=== PATIENT | female | born 1970 | race Caucasian/White ===

== ENCOUNTER 2016-05-22 16:41 | Emergency (ER) | payer OTHER, BC ==
[2016-05-22] MEDS ORDERED: 0.9 % SODIUM CHLORIDE 1,000 ML BAG IV ONE ×2 (17:20→18:30)
[2016-05-22] MEDS ORDERED: ONDANSETRON HCL IV 4 MG/2 ML VIAL IV ONE (17:20)
[2016-05-22 17:34] LABS: HEMOGLOBIN 15.4 gm/dl (11.6-16.0); MEAN CELL VOLUME 81.9 fl (81-97); MEAN CORPUSCULAR HEMOGLOBIN 26.8 pg (27-33); MEAN CORPUSCULAR HGB CONC 32.8 g/dl (32-36); MEAN PLATELET VOLUME 11.7 fl (7.4-10.4); PLATELET COUNT 292 K/uL (130-400); RED BLOOD COUNT 5.74 M/uL (3.80-5.40); RED CELL DISTRIBUTION WIDTH 13.9 % (11.5-14.5); WHITE BLOOD COUNT W/O DIFF 16.8 K/uL (4.2-12.2)
[2016-05-22 17:43] LABS: PLATELET ESTIMATE NORMAL (NORMAL)
[2016-05-22 17:48] LABS: ALB/GLOB RATIO 1.6 (1.1-1.8); ALKALINE PHOSPHATASE 127 U/L (38-126); ALT/SGPT 35 U/L (9-52); ANION GAP 11.1 (7-16); AST/SGOT 35 U/L (14-36); BILIRUBIN,TOTAL 0.33 mg/dL (0.2-1.3); BLOOD UREA NITROGEN 16 mg/dL (7-17); CARBON DIOXIDE 22.9 mmol/L (22-30); CREATININE 0.8 mg/dL (0.52-1.04); EST GLOMERULAR FILTRATION RATE > 60 ml/min; GLUCOSE,RANDOM 142 mg/dL (70-110); LIPASE 85 U/L (23-300); TOTAL PROTEIN 8.1 gm/dL (6.3-8.2)
[2016-05-22] MEDS ORDERED: HYDROMORPHONE HCL 1 MG/ML CPJ IVP ONE ×2 (17:53→18:29)
--- NOTE | 2016-05-22 17:53 | Emergency Department Record ---
History of Present Illness - General Chief Complaint: Abdominal Pain Stated Complaint: ABD PAIN Time Seen by Provider: 05/22/16 17:11 Source: Patient Mode of Arrival: Wheelchair Limitations: No limitations - History of Present Illness Initial Comments: pt became ill at 1300 w vomiting and diarrhea. she had a banana, protein bar this morning. 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 10/02/13 Hydrocodone/Acetaminophen [Norcatur 1 tab PO Q6H PRN #10 tab 05/22/16 5mg/325mg] Ondansetron [Zofran Odt] 4 mg PO Q8H #10 tab.rapdis 05/22/16 Allergies Allergy/AdvReac Type Severity Reaction Status Date / Time Penicillins Allergy UNKNOWN Verified 10/02/13 20:27 Travel Screening - Travel/Exposure Within Last 30 Days Have you traveled within the last 30 days?: No - Travel/Exposure Within Last Year Have you traveled outside the [place] in the last year?: No - Additonal Travel Details Have you been exposed to anyone with a communicable illness?: No - Travel Symptoms Symptom Screening: None Review of Systems Reviewed: No additional complaints except as noted below Constitutional: Reports: As per HPI. Denies: Chills, Fever, Malaise, Night sweats, Weakness, Weight change Eyes: Reports: As per HPI. Denies: Eye discharge, Eye pain, Photophobia, Vision change ENT: Reports: As per HPI. Denies: Congestion, Dental pain, Ear pain, Epistaxis , Hearing loss, Throat pain Respiratory: Reports: As per HPI. Denies: Cough, Dyspnea, Hemoptysis, Stridor, Wheezes Cardiovascular: Reports: As per HPI. Denies: Arrhythmia, Chest pain, Dyspnea on exertion, Edema, Murmurs, Orthopnea, Palpitations, Paroxysmal nocturnal dyspnea, Rheumatic Fever, Syncope Endocrine: Reports: As per HPI. Denies: Fatigue, Heat or cold intolerance, Polydipsia, Polyuria Gastrointestinal: Reports: As per HPI. Denies: Abdominal pain, Constipation, Diarrhea, Hematemesis, Hematochezia, Melena, Nausea, Vomiting Genitourinary: Reports: As per HPI. Denies: Abnormal menses, Discharge, Dyspareunia, Dysuria, Frequency, Hematuria, Incontinence, Retention, Urgency Musculoskeletal: Reports: As per HPI. Denies: Arthralgia, Back pain, Gout, Joint swelling, Myalgia, Neck pain Skin: Reports: As per HPI. Denies: Bruising, Change in color, Change in hair/ nails, Lesions, Pruritus, Rash Neurological: Reports: As per HPI. Denies: Abnormal gait, Confusion, Headache, Numbness, Paresthesias, Seizure, Tingling, Tremors, Vertigo, Weakness Psychiatric: Reports: As per HPI. Denies: Anxiety, Auditory hallucinations, Depression, Homicidal thoughts, Suicidal thoughts, Visual hallucinations Hematological/Lymphatic: Reports: As per HPI. Denies: Anemia, Blood Clots, Easy bleeding, Easy bruising, Swollen glands Past Medical History - SOCIAL HISTORY Smoking Status: Former smoker Alcohol Use: Rare Drug Use: None - RESPIRATORY Hx Respiratory Disorders: No - CARDIOVASCULAR Hx Cardio Disorders: No - NEURO Hx Neuro Disorders: No - GI Hx GI Disorders: Yes Hx Hiatal Hernia: Yes - Hx Genitourinary Disorders: No - ENDOCRINE Hx Endocrine Disorders: No - MUSCULOSKELETAL Hx Musculoskeletal Disorders: No - PSYCH Hx Psych Problems: Yes Hx Depression: Yes - HEMATOLOGY/ONCOLOGY Hx Hematology/Oncology Disorders: No Family Medical History Any Significant Family History?: No Physical Exam - General General Appearance: Alert, Oriented x3, Cooperative, Mild distress - Head Head exam: Normal inspection - Eye Eye exam: Normal appearance, PERRL, EOMI Pupils: Normal accommodation - ENT ENT exam: Normal exam, Mucous membranes dry, Normal external ear exam, Normal orophraynx Ear exam: Normal external inspection. negative: External canal tenderness Nasal Exam: Normal inspection. negative: Discharge, Sinus tenderness Mouth exam: Normal external inspection, Tongue normal Teeth exam: Normal inspection. negative: Dental caries Throat exam: Normal inspection. negative: Tonsillar erythema, Tonsillar exudate - Neck Neck exam: Normal inspection, Full ROM. negative: Tenderness - Respiratory Respiratory exam: Normal lung sounds bilaterally. negative: Respiratory distress - Cardiovascular Cardiovascular Exam: Regular rate, Normal rhythm, Normal heart sounds - GI/Abdominal GI/Abdominal exam: Soft, Normal bowel sounds, Tenderness - Rectal Rectal exam: Deferred - exam: Deferred - Extremities Extremities exam: Normal inspection, Full ROM, Normal capillary refill. negative: Tenderness - Back Back exam: Reports: Normal inspection, Full ROM. Denies: Muscle spasm, Rash noted, Tenderness - Neurological Neurological exam: Alert, CN II-XII intact, Normal gait, Oriented X3 - Psychiatric Psychiatric exam: Normal affect, Normal mood - Skin Skin exam: Dry, Intact, Normal color, Warm Course Vital Signs 05/22/16 16:44 Temperature 97.9 F Pulse Rate 94 H Respiratory 20 Rate Blood Pressure 154/112 Pulse Ox 96 - Reevaluation(s) Reevaluation #1: 05/22/16 17:54 care being assumed by dr canada Reevaluation #2: 05/22/16 18:[address] canada urine pending Medical Decision Making - Lab Data Result diagrams: 05/22/16 17:25 05/22/16 17:25 Lab Results 05/22/16 05/22/16 05/22/16 Range/Units 17:25 17:25 17:25 WBC 16.8 H (4.2-12.2) K/uL RBC 5.74 H (3.80-5.40) M/uL Hgb 15.4 (11.6-16.0) gm/dl Hct 47.0 (35.0-47.0) % MCV 81.9 (81-97) fl MCH 26.8 L (27-33) pg MCHC 32.8 (32-36) g/dl RDW 13.9 (11.5-14.5) % Plt Count 292 (130-400) K/uL MPV 11.7 H (7.4-10.4) fl Neutrophils % 87.0 H (47-80) % Lymphocytes % 6.0 L (16-45) % Monocytes % 5.0 (0-9) % Eosinophils % 2.0 (0-6) % Basophils % Not Reportable Platelet Estimate Normal (NORMAL) RBC Morphology Normal Stool Occult Blood Negative Stool for White Cells No wbc's observed Disposition Disposition: Discharge Clinical Impression: Rotavirus enteritis Disposition: Home, Self-Care Condition: (1) Good Instructions: Rotavirus Infection (ED) Additional Instructions: follow up with family doctor. return sooner if worse. push fluids. BRAT diet. Prescriptions: Hydrocodone/Acetaminophen [Norcatur 5mg/325mg] 1 tab PO Q6H PRN #10 tab PRN Reason: Pain - General Ondansetron [Zofran Odt] 4 mg PO Q8H #10 tab.rapdis Forms: Patient Portal Access, Return to Work/School
[2016-05-22 18:12] LABS: ROTOVIRUS DETECTED (NOT DETECT)
[2016-05-22 18:14] LABS: CRYPTOSPORIDIUM PARVUM ANTIGEN NOT DETECTED (NOT DETECT); GIARDIA LAMBLIA ANTIGEN NOT DETECTED (NOT DETECT)
[2016-05-22 19:05] LABS: MOLECULAR C DIFF TOXIN SCREEN NOT DETECTED
[2016-05-22 19:18] LABS: URINE APPEARANCE CLEAR; URINE BILIRUBIN NEGATIVE (NEGATIVE); URINE BLOOD SMALL (NEGATIVE); URINE COLOR YELLOW; URINE GLUCOSE (UA) NEGATIVE (NEGATIVE); URINE KETONE TRACE (NEGATIVE); URINE LEUKOCYTE ESTERASE NEGATIVE (NEGATIVE); URINE NITRITE NEGATIVE (NEGATIVE); URINE PROTEIN NEGATIVE (NEGATIVE); URINE UROBILINOGEN 0.2 E.U./dL (0.20 - 1.00)
[2016-05-22 19:25] LABS: URINE BACTERIA NONE SEEN; URINE EPITHELIAL CELLS 0 - 2 (FEW); URINE WBC NONE SEEN (0-2/hpf)
[2016-05-22] MEDS ORDERED: HYDROCODONE/APAP 5/325MG TABLET PO ONE (19:53)
== END 2016-05-22 19:55 | disposition home or self-care (01) ==
LOC: ER 16:41
DX: A08.0 Rotaviral enteritis (principal); R11.2 Nausea with vomiting, unspecified; R19.7 Diarrhea, unspecified
CPT/HCPCS: 99284 ×2; 96376; 96374; 96375; 96361; 83690; 87329; 80053; 81001; 89055; 87425; 87427; 82272; 87493; 85027; J2405; J1170; J7030

== ENCOUNTER 2017-01-15 14:36 | Observation (INO) | payer OTHER, BC ==
[2017-01-15] MEDS ORDERED: LORAZEPAM 2 MG/ML VIAL IV ONE (15:11)
--- NOTE | 2017-01-15 15:17 | Emergency Department Record ---
Anxiety - General Chief Complaint: Anxiety Stated Complaint: SBO AND NUMBNESS IN LEGS Time Seen by Provider: 01/15/17 14:53 Source: Patient Mode of Arrival: Ambulatory Limitations: No limitations - History of Present Illness Initial Comments: The patient is here due to not feeling well for the last 45 minutes or so. She was driving in the car and began to not feel well. She then went into [employer] to get a soda and then was a little confused. Soon after she developed numbness to her arms and legs and felt like her legs were "in cement". She was at that time experiencing chest heaviness retrosternally with no radiation but with mild SOB. There was no reported nausea, sweating or dizziness. Presently the arm numbness has pretty much resolved and the legs are improved but not resolved. The patient does have a hx of anxiety and depression and did stop her Paxil and Abilify last month abruptly. She is still taking Wellbutrin. MD Complaint: Anxiety, Shortness of breath Onset/Timin -: Minutes(s) Symptoms: Chest pain, Dyspnea, Extremity numbness/tingling Place: Home Previous History of Same: No Quality: Constant Provoking factors: Emotional stress Improves With: Nothing Worsens With: Nothing Associated symptoms: Weakness - Related Data Home Medications: Home Medications Medication Instructions Recorded Confirmed Last Taken Aripiprazole [Aripiprazole] 2 mg PO DAILY 01/15/17 01/15/17 Unknown Bupropion HCl [Bupropion Xl] 300 mg PO DAILY 01/15/17 01/15/17 Unknown Paroxetine HCl [Paxil] 30 mg PO DAILY 01/15/17 01/15/17 Unknown Allergies/Adverse Reactions: Allergies Allergy/AdvReac Type Severity Reaction Status Date / Time Penicillins Allergy UNKNOWN Verified 10/02/13 20:27 Travel Screening - Travel/Exposure Within Last 30 Days Have you traveled within the last 30 days?: No Review of Systems Constitutional: Denies: Chills, Fever Eyes: Denies: Eye discharge ENT: Denies: Congestion, Other Respiratory: Denies: Cough, Dyspnea Past Medical History - SOCIAL HISTORY Smoking Status: Former smoker Alcohol Use: None Drug Use: None - RESPIRATORY Hx Respiratory Disorders: No - CARDIOVASCULAR Hx Cardio Disorders: No - NEURO Hx Neuro Disorders: No - GI Hx GI Disorders: Yes Hx Hiatal Hernia: Yes - Hx Genitourinary Disorders: No - ENDOCRINE Hx Endocrine Disorders: No - MUSCULOSKELETAL Hx Musculoskeletal Disorders: No - PSYCH Hx Psych Problems: Yes Hx Depression: Yes - HEMATOLOGY/ONCOLOGY Hx Hematology/Oncology Disorders: No Family Medical History Any Significant Family History?: No Physical Exam - General General Appearance: Alert, Cooperative, No acute distress (The patient is resting quietly and comfortably.) - Head Head exam: Atraumatic, Normocephalic, Normal inspection - Eye Eye exam: Normal appearance, PERRL - ENT Throat exam: Normal inspection. negative: Tonsillar erythema, Tonsillar exudate - Neck Neck exam: Normal inspection, Full ROM. negative: Tenderness - Respiratory Respiratory exam: Normal lung sounds bilaterally. negative: Respiratory distress - Cardiovascular Cardiovascular Exam: Regular rate, Normal rhythm, Normal heart sounds - GI/Abdominal GI/Abdominal exam: Soft, Normal bowel sounds. negative: Tenderness - Extremities Extremities exam: Normal inspection, Full ROM, Normal capillary refill. negative: Tenderness - Neurological Neurological exam: Abnormal gait, Alert, Reflexes normal, Other (Neg expressive aphasia or facial drooping or trouble swallowing. Neg Drift or Rhomberg exams.) . negative: Altered, Motor sensory deficit, Normal gait, Oriented X3 (The patient is oriented to name, place, home address but did get her age wrong and also the day of the week.) - Psychiatric Psychiatric exam: Flat affect. negative: Agitated, Anxious, Normal affect - Skin Skin exam: negative: Rash Course Vital Signs 01/15/17 14:39 Temperature 98.3 F Pulse Rate 88 Respiratory 28 H Rate Blood Pressure 176/128 Pulse Ox 100 - Reevaluation(s) Reevaluation #1: The patient is doing a lot better at this time. She denies any CP, SOB, TAMIKA, or any headache or visual changes. She is able to get up to walk with no difficulty. her arm numbness has resolved and her leg numbness is 90% resolved. I also did test her Finger to Nose exam and it is normal bilaterally. At this time I see no signs of any acute CVA. 01/15/17 15:57 01/15/17 17:28 Reevaluation #2: 01/15/17 16:29 The patient is doing very well at this time and is back to normal with no pain. I did discuss the issues with the patient and did recommend a short stay hospital admission and the patient agreed to the plan. I also did discuss the case with Dr. Sky and he accepted the patient for admission. 01/15/17 16:32 Medical Decision Making - Data Complexity MDM Data: Labs Ordered and/or Reviewed, X-Ray Ordered and/or Reviewed, EKG Ordered and/or Reviewed - Lab Data Result diagrams: 01/15/17 15:15 01/15/17 15:15 - EKG Data -: EKG Interpreted by Me EKG: No Acute Changes (Neg for ischemia. Poss poor R wave progression.) - Radiology Data Radiology results: Report reviewed (CXR: Neg Head CT: Neg.) Disposition Disposition: Admit Clinical Impression: Paresthesia Chest pain Qualifiers: Chest pain type: unspecified Qualified Code(s): R07.9 - Chest pain, unspecified Disposition: Still a Patient at [facility] Decision to Admit: Admit from ER Decision to Admit Date: 01/15/17 Decision to Admit Time: 16:33 Accepting Physician: Jasmin Time Discussed w/Accepting Physician: 16:33 Condition: (2) Stable Time of Disposition: 16:33 Quality - Quality Measures Quality Measures: N/A - Blood Pressure Screening View Details: Yes Does Patient Have Any of the Following: No Blood Pressure Classification: Hypertensive Reading Systolic Measurement: 137 Diastolic Measurement: 108 Screening for High Blood Pressure: < First Hypertensive BP, F/U Documented > [ [id number]] First Hypertensive Follow-up Interventions: Referral to alternative/primary care provider.
[2017-01-15 15:25] LABS: BASO % 0.5 % (0-6); EOS % 2.3 % (0-6); GRAN % 61.2 % (47-80); HEMATOCRIT 41.5 % (35.0-47.0); HEMOGLOBIN 13.4 gm/dl (11.6-16.0); LYMPH % 28.1 % (16-45); MEAN CELL VOLUME 83.2 fl (81-97); MEAN CORPUSCULAR HEMOGLOBIN 26.9 pg (27-33); MEAN CORPUSCULAR HGB CONC 32.3 g/dl (32-36); MEAN PLATELET VOLUME 11.3 fl (7.4-10.4); MONO % 7.9 % (0-9); PLATELET COUNT 245 K/uL (130-400); RED BLOOD COUNT 4.99 M/uL (3.80-5.40); RED CELL DISTRIBUTION WIDTH 14.2 % (11.5-14.5); WHITE BLOOD COUNT W/O DIFF 7.7 K/uL (4.2-12.2)
[2017-01-15 15:40] LABS: BLOOD UREA NITROGEN 8 mg/dL (6-20); CREATININE 0.8 mg/dL (0.5-0.9); EST GLOMERULAR FILTRATION RATE > 60 mL/min
[2017-01-15 15:43] LABS: GLUCOSE,RANDOM 99 mg/dL (74-109)
[2017-01-15 15:45] LABS: ALB/GLOB RATIO 1.7 (1.1-1.8); ALBUMIN 4.4 g/dL (4.0-5.0); ALKALINE PHOSPHATASE 95 U/L (35-104); ALT/SGPT 9 U/L (<33); AST/SGOT 12 U/L (10.0-35.0); CREATINE PHOSPHOKINASE 57 U/L (26-192)
[2017-01-15 15:48] LABS: CKMB < 1.0 ng/mL (<3.77)
[2017-01-15] MEDS ORDERED: PAROXETINE HCL 10 MG TABLET PO SCH (16:30)
[2017-01-15] MEDS ORDERED: LORAZEPAM 0.5 MG TABLET PO PRN (16:48)
[2017-01-15 17:28] LABS: AMPHETAMINE SCREEN URINE NOT DETECTED; BARBITURATE SCREEN URINE NOT DETECTED; BENZODIAZEPINE SCREEN URINE NOT DETECTED; COCAINE SCREEN URINE NOT DETECTED; METHADONE SCREEN URINE NOT DETECTED; METHAMPHETAMINE SCREEN NOT DETECTED; OPIATE SCREEN URINE NOT DETECTED; OXYCODONE SCREEN URINE NOT DETECTED; PHENCYCLIDINE SCREEN URINE NOT DETECTED; PROPOXYPHENE SCREEN URINE NOT DETECTED; THC SCREEN URINE NOT DETECTED; TRICYCLIC ANTIDEPRESSANT SCRN NOT DETECTED
[2017-01-15] MEDS: ASPIRIN 325 MG TAB ENTERIC-COATED PO SCH (17:49)
[2017-01-15] MEDS: ACETAMINOPHEN 500 MG TABLET PO PRN ×2 (18:53→23:31)
[2017-01-15 20:00] LABS: CKMB < 1.0 ng/mL (<3.77)
[2017-01-16 04:26] LABS: CKMB < 1.0 ng/mL (<3.77)
--- NOTE | 2017-01-16 07:46 | History & Physical ---
History of Present Illness - Date of Service Date of Service for History & Physical: 01/16/17 - History of Present Illness Admitting Diagnosis: 1. Chest pain, R/O CO. 2. Diffuse Paresthesia's and Confusion, etiology unclear. History of Present Illness: Mrs. Barron is a 46 y/o female who comes with confusion and feeling weird while driving this afternoon. She says that she stop into [employer] for a drink and began to feel short of breath with chest tightness and numbness of her arms and legs. She denies blurring of vision, headache, nausea, vomiting, palpitations or loss of consciousness. The patient has not previous history of cardiac disease or stroke and denies smoking or alcohol use. She does have a history of anxiety and depression for which she takes Paxil, Abilify and Wellbutrin. She admits to abruptly discontinuing her medications without proper taper or medical advice and is not under the care of a psychiatrist. On presentation to the ED the patients symptoms had much improved and workup did not show any significant findings. She was resumed on her antidepressant medications at initiation doses and admitted for further observation. Travel Screening - Travel/Exposure Within Last 30 Days Have you traveled within the last 30 days?: No - Travel/Exposure Within Last Year Have you traveled outside the [place] in the last year?: No - Additonal Travel Details Have you been exposed to anyone with a communicable illness?: No - Travel Symptoms Symptom Screening: None Review of Systems Reviewed: No additional complaints except as noted below Constitutional: Denies: Chills, Fever Eyes: Denies: Eye discharge ENT: Denies: Congestion, Other Respiratory: Denies: Cough, Dyspnea Cardiovascular: Reports: As per HPI. Denies: Arrhythmia, Chest pain, Dyspnea on exertion, Edema, Murmurs, Orthopnea, Palpitations, Paroxysmal nocturnal dyspnea, Rheumatic Fever, Syncope Endocrine: Reports: As per HPI. Denies: Fatigue, Heat or cold intolerance, Polydipsia, Polyuria Gastrointestinal: Reports: As per HPI. Denies: Abdominal pain, Constipation, Diarrhea, Hematemesis, Hematochezia, Melena, Nausea, Vomiting Genitourinary: Reports: As per HPI. Denies: Abnormal menses, Discharge, Dyspareunia, Dysuria, Frequency, Hematuria, Incontinence, Retention, Urgency Musculoskeletal: Reports: As per HPI. Denies: Arthralgia, Back pain, Gout, Joint swelling, Myalgia, Neck pain Skin: Reports: As per HPI. Denies: Bruising, Change in color, Change in hair/ nails, Lesions, Pruritus, Rash Neurological: Reports: As per HPI. Denies: Abnormal gait, Confusion, Headache, Numbness, Paresthesias, Seizure, Tingling, Tremors, Vertigo, Weakness Psychiatric: Reports: As per HPI. Denies: Anxiety, Auditory hallucinations, Depression, Homicidal thoughts, Suicidal thoughts, Visual hallucinations Hematological/Lymphatic: Reports: As per HPI. Denies: Anemia, Blood Clots, Easy bleeding, Easy bruising, Swollen glands Past Medical History - SOCIAL HISTORY Smoking Status: Former smoker Alcohol Use: Occasional Drug Use: None - RESPIRATORY Hx Respiratory Disorders: No - CARDIOVASCULAR Hx Cardio Disorders: No - NEURO Hx Neuro Disorders: No - GI Hx GI Disorders: Yes Hx Hiatal Hernia: Yes - Hx Genitourinary Disorders: No - ENDOCRINE Hx Endocrine Disorders: No - MUSCULOSKELETAL Hx Musculoskeletal Disorders: No - PSYCH Hx Psych Problems: Yes Hx Anxiety: Yes Hx Depression: Yes - HEMATOLOGY/ONCOLOGY Hx Hematology/Oncology Disorders: No Family Medical History Any Significant Family History?: No Hx Cancer: Father, Mother H&P Meds/Allergies - Allergies Allergies: Allergies Allergy/AdvReac Type Severity Reaction Status Date / Time Penicillins Allergy UNKNOWN Verified 10/02/13 20:27 - Home Medications Home Medications Medication Instructions Recorded Confirmed Last Taken Aripiprazole 2 mg PO DAILY 01/15/17 01/15/17 Unknown Bupropion HCl [Bupropion Xl] 300 mg PO DAILY 01/15/17 01/15/17 Unknown Previous Rx's Medication Instructions Recorded Acetaminophen [Tylenol 500Mg Tab] 500 mg PO Q4H PRN #14 tablet 01/16/17 Paroxetine HCl [Paxil] 20 mg PO DAILY #20 tablet 01/16/17 - Active Medications Active Medications: Current Medications Acetaminophen (Tylenol 500mg Tab) 500 mg PO Q4H PRN PRN Reason: HEADACHE Last Admin: 01/15/17 23:31 Dose: 500 mg Aspirin (Ecotrin (Ec)) 325 mg PO DAILY MORE Last Admin: 01/15/17 17:49 Dose: 325 mg Bupropion HCl (Wellbutrin Sr) 300 mg PO DAILY [facility] Lorazepam (Ativan) 1 mg PO BID PRN PRN Reason: ANXIETY Last Admin: 01/15/17 23:32 Dose: 1 mg Non-Formulary Medication (Aripiprazole [Aripiprazole]) 2 mg PO DAILY MORE Last Admin: 01/15/17 18:54 Dose: 2 mg Paroxetine HCl (Paxil) 20 mg PO DAILY [facility] Physical Exam - Vital Signs Vital Signs: Vital Signs - Last 24 Hrs Temp Pulse Pulse Pulse Resp BP BP 01/16/17 04:00 97.8 F 82 16 132/93 01/15/17 23:30 97.8 F 78 16 144/97 01/15/17 20:30 97.7 F 78 16 144/95 01/15/17 18:12 84 84 18 01/15/17 17:25 98.6 F 84 18 136/89 01/15/17 17:12 85 18 137/108 Pulse Ox 01/16/17 04:00 82 L 01/15/17 23:30 98 01/15/17 20:30 98 01/15/17 18:12 01/15/17 17:25 100 01/15/17 17:12 100 - General General Appearance: Alert, Cooperative, No acute distress (The patient is resting quietly and comfortably.) Limitations: No limitations - Head Head exam: Atraumatic, Normocephalic, Normal inspection - Eye Eye exam: Normal appearance, PERRL - ENT Nasal Exam: Normal inspection. negative: Discharge, Sinus tenderness Mouth exam: Normal external inspection, Tongue normal Throat exam: Normal inspection. negative: Tonsillar erythema, Tonsillar exudate - Neck Neck exam: Normal inspection, Full ROM. negative: Tenderness - Respiratory Respiratory exam: Normal lung sounds bilaterally. negative: Respiratory distress - Cardiovascular Cardiovascular Exam: Regular rate, Normal rhythm, Normal heart sounds Peripheral Pulses: 2+: Radial (R), Radial (L), Dorsalis Pedis (R), Dorsalis Pedis (L) - GI/Abdominal GI/Abdominal exam: Soft, Normal bowel sounds. negative: Tenderness - Extremities Extremities exam: Normal inspection, Full ROM, Normal capillary refill. negative: Tenderness - Neurological Neurological exam: Abnormal gait, Alert, Reflexes normal, Other (Neg expressive aphasia or facial drooping or trouble swallowing. Neg Drift or Rhomberg exams.) . negative: Altered, Motor sensory deficit, Normal gait, Oriented X3 (The patient is oriented to name, place, home address but did get her age wrong and also the day of the week.) - Psychiatric Psychiatric exam: Flat affect. negative: Agitated, Anxious, Normal affect - Skin Skin exam: negative: Rash Results - Labs Result Diagrams: 01/15/17 15:15 01/15/17 15:15 Labs Last 24 Hours: Laboratory Results - last 24 hr 01/15/17 01/15/17 01/16/17 17:15 19:40 03:43 CK-MB (CK-2) < 1.0 < 1.0 Troponin T < 0.010 < 0.010 Urine Opiates Screen Not detected Ur Oxycodone Screen Not detected Urine Methadone Screen Not detected Ur Propoxyphene Screen Not detected Ur Barbituates Screen Not detected Ur Tricyclics Screen Not detected Ur Phencyclidine Scrn Not detected Ur Amphetamine Screen Not detected U Methamphetamines Scrn Not detected U Benzodiazepines Scrn Not detected Urine Cocaine Screen Not detected Urine Cannabis Screen Not detected VTE H&P Assessment - Risk for VTE Risk for VTE: No Risk Level: Very Low Risk Assessment Date: 01/16/17 Risk Assessment Time: 09:28 VTE Orders Placed or Will Be Placed: No VTE Reason for No Prophylaxis: Not Indicated Plan - Detailed Diagnosis and Plan (1) Acute anxiety Current Visit: Yes Status: Acute Base Code: F41.9 - ANXIETY DISORDER, UNSPECIFIED Comment: - no evidence of acute cerebral infarct or acute coronary syndrome. - ECG - NSR, tele monitoring, troponins negative x 2, lytes and CBC within normal limits. - resuming doses of Paxil, Abilify and cont Wellbutrin. Proper titration of doses needed. (2) Acute drug withdrawal syndrome Current Visit: Yes Status: Acute Base Code: F19.239 - OTH PSYCHOACTIVE SUBSTANCE DEPENDENCE WITH WITHDRAWAL, UNSP Comment: - pt reported chest tightness, confusion and numbness. Likely as a result of atypical and SSRI withdrawal. - abruptly dc/d Abilify and Paxil. Meds prescribed by PCP but pt has not been followed by a psychiatrist. - counseled to seek proper medical advice before tapering medications. (3) Depression Current Visit: Yes Status: Acute Base Code: F32.9 - MAJOR DEPRESSIVE DISORDER, SINGLE EPISODE, UNSPECIFIED Comment: - hx of depression on SSRIs and atypical antidepressants. - resuming with titrating doses. (4) Full code status Current Visit: Yes Status: Acute Base Code: Z78.9 - OTHER SPECIFIED HEALTH STATUS Comment: FULL CODE - Disposition D/C home with f/u with PCP.
[2017-01-16] MEDS: ASPIRIN 325 MG TAB ENTERIC-COATED PO SCH ×2 (08:53→11:22)
[2017-01-16] MEDS: BUPROPION HCL 150 MG TAB.SR.12H PO SCH ×2 (08:54→11:22)
[2017-01-16] MEDS: ACETAMINOPHEN 500 MG TABLET PO PRN (08:55)
[2017-01-16] MEDS: PAROXETINE HCL 10 MG TABLET PO SCH ×2 (08:55→11:22)
[2017-01-16] MEDS ORDERED: ARIPIPRAZOLE 2 MG PO SCH (10:00)
[2017-01-16] MEDS ORDERED: ABILIFY 2 MG PO SCH (10:00)
--- NOTE | 2017-01-16 10:38 | Discharge Summary ---
Providers Discharge Summary Date: 01/16/17 Date of admission: 01/15/17 17:09 Attending physician: Rahul Castellanos Primary care physician: ANDREZ VELA M.D. Physical Exam - Vital Signs Vital Signs: Vital Signs - Last 24 Hrs Temp Pulse Pulse Pulse Resp BP BP 01/16/17 08:00 98.7 F 84 18 139/97 01/16/17 04:00 97.8 F 82 16 132/93 01/15/17 23:30 97.8 F 78 16 144/97 01/15/17 20:30 97.7 F 78 16 144/95 01/15/17 18:12 84 84 18 01/15/17 17:25 98.6 F 84 18 136/89 01/15/17 17:12 85 18 137/108 Pulse Ox 01/16/17 08:00 96 01/16/17 04:00 82 L 01/15/17 23:30 98 01/15/17 20:30 98 01/15/17 18:12 01/15/17 17:25 100 01/15/17 17:12 100 - General General Appearance: Alert, Cooperative, No acute distress (The patient is resting quietly and comfortably.) Limitations: No limitations - Head Head exam: Atraumatic, Normocephalic, Normal inspection - Eye Eye exam: Normal appearance, PERRL - ENT Nasal Exam: Normal inspection. negative: Discharge, Sinus tenderness Mouth exam: Normal external inspection, Tongue normal Throat exam: Normal inspection. negative: Tonsillar erythema, Tonsillar exudate - Neck Neck exam: Normal inspection, Full ROM. negative: Tenderness - Respiratory Respiratory exam: Normal lung sounds bilaterally. negative: Respiratory distress - Cardiovascular Cardiovascular Exam: Regular rate, Normal rhythm, Normal heart sounds Peripheral Pulses: 2+: Radial (R), Radial (L), Dorsalis Pedis (R), Dorsalis Pedis (L) - GI/Abdominal GI/Abdominal exam: Soft, Normal bowel sounds. negative: Tenderness - Extremities Extremities exam: Normal inspection, Full ROM, Normal capillary refill. negative: Tenderness - Neurological Neurological exam: Abnormal gait, Alert, Reflexes normal, Other (Neg expressive aphasia or facial drooping or trouble swallowing. Neg Drift or Rhomberg exams.) . negative: Altered, Motor sensory deficit, Normal gait, Oriented X3 (The patient is oriented to name, place, home address but did get her age wrong and also the day of the week.) - Psychiatric Psychiatric exam: Flat affect, Normal mood. negative: Agitated, Anxious, Homicidal ideation, Normal affect, Suicidal ideation - Skin Skin exam: negative: Rash Hospitalization - Hospitalization Admission Diagnosis: 1. Chest pain, R/O GA. 2. Diffuse Paresthesia's and Confusion, etiology unclear. - Problem List/Discharge Diagnosis (1) Acute anxiety Current Visit: Yes Status: Acute Base Code: F41.9 - ANXIETY DISORDER, UNSPECIFIED Comment: - no evidence of acute cerebral infarct or acute coronary syndrome. - ECG - NSR, tele monitoring, troponins negative x 2, lytes and CBC within normal limits. - resuming doses of Paxil, Abilify and cont Wellbutrin. Proper titration of doses needed. (2) Acute drug withdrawal syndrome Current Visit: Yes Status: Acute Base Code: F19.239 - OTH PSYCHOACTIVE SUBSTANCE DEPENDENCE WITH WITHDRAWAL, UNSP Comment: - pt reported chest tightness, confusion and numbness. Likely as a result of atypical and SSRI withdrawal. - abruptly dc/d Abilify and Paxil. Meds prescribed by PCP but pt has not been followed by a psychiatrist. - counseled to seek proper medical advice before tapering medications. (3) Depression Current Visit: Yes Status: Acute Base Code: F32.9 - MAJOR DEPRESSIVE DISORDER, SINGLE EPISODE, UNSPECIFIED Comment: - hx of depression on SSRIs and atypical antidepressants. - resuming with titrating doses. (4) Full code status Current Visit: Yes Status: Acute Base Code: Z78.9 - OTHER SPECIFIED HEALTH STATUS Comment: FULL CODE - Disposition D/C home with f/u with PCP. - Hospitalization Course Hospital Course: Mrs. Barron is a 46 y/o female who comes with confusion and feeling weird while driving this afternoon. She says that she stop into [employer] for a drink and began to feel short of breath with chest tightness and numbness of her arms and legs. She denies blurring of vision, headache, nausea, vomiting, palpitations or loss of consciousness. The patient has not previous history of cardiac disease or stroke and denies smoking or alcohol use. She does have a history of anxiety and depression for which she takes Paxil, Abilify and Wellbutrin. She admits to abruptly discontinuing her medications without proper taper or medical advice and is not under the care of a psychiatrist. On presentation to the ED the patients symptoms had much improved and workup did not show any significant findings. She was resumed on her antidepressant medications at initiation doses and admitted for further observation. CT head w/o contrast negative, CXR negative. Patient evaluated at bedside this morning with improvement in symptoms. She says that she feels back to her usual self. She does complain of mild headache which has improved since last night where she had more severe pain. No neurological deficits or exam findings this morning. Condition at Discharge: (2) Stable VTE Discharge VTE Reason For No Overlap Therapy: Not Indicated Discharge Medications - Discharge Medications Prescriptions: Acetaminophen [Tylenol 500Mg Tab] 500 mg PO Q4H PRN #14 tablet PRN Reason: Headache Paroxetine HCl [Paxil] 20 mg PO DAILY #20 tablet Home Medications: Ambulatory Orders Aripiprazole 2 mg PO DAILY 01/15/17 [Last Taken Unknown] Bupropion HCl [Bupropion Xl] 300 mg PO DAILY 01/15/17 [Last Taken Unknown] Acetaminophen [Tylenol 500Mg Tab] 500 mg PO Q4H PRN #14 tablet 01/16/17 [Last Taken Unknown] Paroxetine HCl [Paxil] 20 mg PO DAILY #20 tablet 01/16/17 [Last Taken Unknown] Discharge Plan - Discharge Instructions Activity at Discharge: Resume Usual Activities As Tolerated Diet at Discharge: Regular Diet Additional Instructions: Refilling patient's Paxil with at starting dose of 20mg QD. Patient to cont taking Abilify and Wellbutrin as prescribed. Follow up with her PCP early next week for continued management of antidepressant titration. Patient advised no to drive for the next 2-3 days. Quality Measures - Quality Measures Quality Measures: Documentation of Current Medications in Medical Record, Screening for High Blood Pressure and F/U Documented - Current Medications Quality Measure: Measure #130: Documentation of Current Medications Documentation of Current Medications: <Current Medications Documented/Reviewed> [G4332] - Blood Pressure Screening Quality Measure: Screening for High Blood Pressure and Follow-Up Documented Does Patient Have Any of the Following: No Blood Pressure Classification: Hypertensive Reading Systolic Measurement: 137 Diastolic Measurement: 108 Screening for High Blood Pressure: < Normal BP, F/U Not Required > [C8097] - Elder Abuse Suspicion Index EASI Reference Information: Marga ANDRE, Sherrill Juárez, Bessie Funes, Breana Tee.Development and validation of a tool to assist physicians identification of elder abuse: The Elder Abuse Suspicion Index (EASI ). Journal of Elder Abuse and Neglect, 2008; 20 (3): 276-300.
--- NOTE | 2017-01-17 18:27 | RADIOLOGY REPORT ---
EXAM: CHEST 2 VIEWS HISTORY: DIFFICULTY IN BREATHING. TECHNIQUE: PA and lateral views. COMPARISON: None. FINDINGS: Heart size is normal. Lungs appear expanded with no acute infiltrate seen. No pleural effusion or pneumothorax evident. Minor spurring in the spine. Surgical clips right upper quadrant of the abdomen. IMPRESSION: CHEST APPEARS ESSENTIALLY NEGATIVE WITH NO ACUTE INFILTRATE EVIDENT. MINOR SPURRING IN THE SPINE. JOB NUMBER: [id number] MTDD
--- NOTE | 2017-01-17 18:30 | CT SCAN REPORT ---
EXAM: CT SCAN HEAD WO CONTRAST HISTORY: LEG WEAKNESS. TECHNIQUE: Axial CT scan of the head performed without IV contrast. COMPARISON: None. FINDINGS: No definite acute intracranial hemorrhage identified. No focal mass effect or midline shift apparent. No definite acute infarct or intracranial mass lesion is seen. No depressed calvarial fracture evident. IMPRESSION: EMERGENCY NONCONTRAST HEAD CT APPEARS NEGATIVE WITH NO DEFINITE ACUTE INTRACRANIAL HEMORRHAGE OR FOCAL MASS EFFECT IDENTIFIED. JOB NUMBER: [id number] MTDD
== END 2017-01-16 12:50 | disposition home or self-care (01) ==
LOC: ER 14:36 → MEDSURG 17:09
PROVIDERS: ADMIT Internal Medicine; ATTEND Internal Medicine
DX: F19.239 Other psychoactive substance dependence with withdrawal, unspecified (principal); F41.9 Anxiety disorder, unspecified; F32.9 Major depressive disorder, single episode, unspecified; R20.2 Paresthesia of skin; R41.0 Disorientation, unspecified
CPT/HCPCS: 99285 ×2; 96374; 82550; 85025; 82553 ×2; 80053; 80305; 84484 ×2; 85379; 71020; 70450; 93005 ×2; 93010 ×2; G0378 ×2; J3490; J2060; 99220